=== PATIENT | female | born 1970 | race African-American/Black ===

== ENCOUNTER → 2024-09-14 09:59 | Outpatient (REF) | payer OTHER, SELFPAY ==
[2024-09-14 11:03] LABS: % Basophils 0.1 % (0-2); % Eosinophils 1.1 % (0-6); % Immature Granulocytes 0.2 % (0-0.5); % Monocytes 7.5 % (1.7-9.3); % Neutrophils 65.1 % (42.2-75.2); Absolute Eosinophils 0.1 10^3/uL (0-0.7); Absolute Lymphocytes 2.1 10^3/uL (1.2-3.4); Absolute Monocytes 0.6 10^3/uL (0.1-0.6); Absolute Neutrophils 5.3 10^3/uL (1.4-6.5); Hematocrit 40.4 % (37.0-47.0); Hemoglobin 13.5 g/dL (12.0-16.0); Mean Corp Hgb Conc. 33.4 g/dL (33.0-37.0); Mean Corpuscular Hgb 30.9 pg (27.0-31.0); Mean Corpuscular Volume 92.4 fL (81.0-99.0); Mean Platelet Volume 10.1 fL (7.4-10.4); Nucleated Red Blood Cells % 0 %; Platelet Count 288 10^3/uL (130-400); Red Blood Cell Count 4.37 10^6/uL (4.20-5.40); Red Cell Dist. Width 13.2 % (11.5-14.5); White Blood Cell Count 8.1 10^3/uL (4.8-10.8)
[2024-09-14 11:51] LABS: ALT (SGPT) 24 U/L (0-35); AST (SGOT) 25 U/L (14-36); Albumin 4.2 g/dl (3.5-5.0); Alkaline Phosphatase 98 U/L (38-126); Blood Urea Nitrogen 18 mg/dl (7-17); Calcium 9.6 mg/dl (8.4-10.2); Carbon Dioxide 29 mmol/L (22-30); Chloride 102 mmol/L (98-107); Glucose 83 mg/dl (70-99); HDL Cholesterol 64 mg/dl; LDL Cholesterol, Calculated 109 mg/dl; Potassium 4.3 mmol/L (3.5-5.1); Sodium 141 mmol/L (135-145); Total Bilirubin 0.5 mg/dl (0.2-1.3); Total Cholesterol 187 mg/dl (50-199); Total Protein 7.4 g/dl (6.3-8.2); Triglyceride 74 mg/dl (10-149); Very Low Density Lipoprotein 14 mg/dl (0-30); eGFR > 60.00
== END ==
LOC: REG 09:59
PROVIDERS: ATTENDING PHYSICIAN Physician Assistant
DX: M48.02 Spinal stenosis, cervical region (principal); Z68.37 Body mass index [BMI] 37.0-37.9, adult; F51.01 Primary insomnia; F33.1 Major depressive disorder, recurrent, moderate
CPT/HCPCS: 36415; 80053; 80061; 85025

== ENCOUNTER → 2025-02-11 09:49 | Outpatient (REF) | payer OTHER, MEDICARE, SELFPAY ==
[2025-02-11 10:25] LABS: % Basophils 0.1 % (0-2); % Eosinophils 1.1 % (0-6); % Immature Granulocytes 0.5 % (0-0.5); % Lymphocytes 24.4 % (20.5-51.1); % Monocytes 6.9 % (1.7-9.3); Absolute Eosinophils 0.1 10^3/uL (0-0.7); Absolute Lymphocytes 1.8 10^3/uL (1.2-3.4); Absolute Monocytes 0.5 10^3/uL (0.1-0.6); Hematocrit 40.2 % (37.0-47.0); Hemoglobin 13.1 g/dL (12.0-16.0); Mean Corp Hgb Conc. 32.6 g/dL (33.0-37.0); Mean Corpuscular Hgb 30.5 pg (27.0-31.0); Mean Corpuscular Volume 93.7 fL (81.0-99.0); Mean Platelet Volume 9.9 fL (7.4-10.4); Nucleated Red Blood Cells % 0 %; Platelet Count 269 10^3/uL (130-400); Red Blood Cell Count 4.29 10^6/uL (4.20-5.40); Red Cell Dist. Width 13.6 % (11.5-14.5); White Blood Cell Count 7.5 10^3/uL (4.8-10.8)
[2025-02-11 14:05] LABS: ALT (SGPT) 39 U/L (0-35); AST (SGOT) 31 U/L (14-36); Albumin 4.3 g/dl (3.5-5.0); Alkaline Phosphatase 93 U/L (38-126); Blood Urea Nitrogen 21 mg/dl (7-17); Calcium 9.4 mg/dl (8.4-10.2); Carbon Dioxide 26 mmol/L (22-30); Chloride 105 mmol/L (98-107); Glucose 91 mg/dl (70-99); HDL Cholesterol 57 mg/dl; LDL Cholesterol, Calculated 91 mg/dl; Potassium 4.7 mmol/L (3.5-5.1); Sodium 142 mmol/L (135-145); Total Bilirubin 0.6 mg/dl (0.2-1.3); Total Cholesterol 164 mg/dl (50-199); Total Protein 7.6 g/dl (6.3-8.2); Triglyceride 80 mg/dl (10-149); Very Low Density Lipoprotein 16 mg/dl (0-30); eGFR > 60.00
== END ==
LOC: REG 09:49
PROVIDERS: ATTENDING PHYSICIAN Physician Assistant
DX: Z00.00 Encounter for general adult medical examination without abnormal findings (principal); E66.09 Other obesity due to excess calories; H91.93 Unspecified hearing loss, bilateral; M48.02 Spinal stenosis, cervical region; F33.1 Major depressive disorder, recurrent, moderate; F51.01 Primary insomnia; Z68.37 Body mass index [BMI] 37.0-37.9, adult; F33.0 Major depressive disorder, recurrent, mild
CPT/HCPCS: 36415; 80053; 80061; 85025

== ENCOUNTER 2025-05-25 08:40 | Emergency (ER) | payer MEDICARE, OTHER, SELFPAY ==
[2025-05-25 08:48] VITALS: BP 146/78
--- NOTE | 2025-05-25 09:03 | ED.GENMED ---
History of Present Illness
General
Chief Complaint: Crisis Evaluation
Source: patient
Exam Limitations: none
Time Seen by Provider: 05/25/25 09:03
Nursing documentation reviewed up to this point in time: agreed with
History of Present Illness
History of Present Illness:
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 Patient
expresses that she wants to ' live her own life' and her mother caused her to be upset. Patient expresses that she is $400 short of paying her rent this month, which is causing her to feel stressed out. Patient adamantly denies suicidal and
homicidal thoughts. She reports she is just upset due to financial issues. Patient reports that she used to work at [employer] 5 days a week but because of chronic pain in her hip and her low back, she had to cut back her hours to 3 days a week.
She reports this is still too much for her to handle. Patient denies any drugs, alcohol and cigarettes. She reports she lives alone. Patient is extremely difficult for me to understand due to her being deaf and having muffled speech. I tried to
call the patient's family, however, she tells me she does not have their phone number. She then gave me her own cell phone number to call and when I called it, there was no one that answered. Patient is not interested in getting any help for
anxiety or depression, as she feels that this is not a primary issue at this time.
Past History
Past History
ED Past Medical History: Other (Hearing impaired)
ED Past Surgical History:
Social History
Tobacco: Non-smoker
Alcohol: None
Drug: None
Personal: Single
Living: alone
Employment: Employed
Family History
Family History: Other
Review of Systems
Review of Systems
Allergies reviewed?: Yes
All Other Systems: ROS reviewed and negative except as documented in HPI and ROS
Constitutional: Reports no symptoms
EENT: Reports no symptoms
Respiratory: Reports no symptoms
Cardiac: Reports no symptoms
ABD/GI: Reports no symptoms
: Reports no symptoms
Musculoskeletal: Reports back pain (Chronic low back pain)
Skin: Reports no symptoms
Neurological: Reports no symptoms
Endocrine: Reports no symptoms
Hematologic/Lymphatic: Reports no symptoms
Psychiatric: Reports anxiety (Due to financial issues)
Phy Exam
Physical Exam
Physical Exam:
Physical Exam
General: Patient is tearful but appears well-nourished and conversational
Neck: supple.
Heart: s1/s2 regular rate and rhythm,
Lungs: no acute respiratory distress. clear bilaterally
Abdomen: normal bowel sounds. not tender. no CVAT
Neuro: alert and oriented. no focal neurological deficits
Skin: no rash
Psychiatric: well kept. interactive and cooperative
Extremities: no edema. no calf tenderness. negative homans. good distal pulses
Course
Orders/Labs/Results
Orders:
Orders
05/25/25 09:20
Case Management Consult ONCE
Case Management Consult: Other
Requested By:: PT/FAMILY
Comment: financial help
Vital Signs
Initial and Last Documented VS:
Initial Vital Signs
Temp Pulse Resp BP Pulse Ox
98.5 F 84 18 146/78 98
05/25/25 08:48 05/25/25 08:48 05/25/25 08:48 05/25/25 08:48 05/25/25 08:48
Last Documented Vital Signs
Temp Pulse Resp BP Pulse Ox
98.5 F 84 18 146/78 98
05/25/25 08:48 05/25/25 08:48 05/25/25 08:48 05/25/25 08:48 05/25/25 09:42
MDM/Problems Addressed
Differential Diagnosis Includes:
Social economic problems, acute on chronic depression, acute on chronic anxiety
MDM/Problems Addressed:
Patient reports acute anxiety due to financial issues
Acute Exacerbation and/or Progression of Chronic Illness:
Patient is acutely hypertensive, likely due to anxiety of being brought in by police and dealing with financial issues
Acute Exacerbation and/or Progression of Chronic Illness: HTN
*Pulse Oximetry
SaO2: 98
Oxygen Mode of Delivery: Room air
Patient hypoxic: no
Comment: 98% on room air
*Critical Care Note
Total Time (30-74mins, 75-104mins- exclusive of procedures): Not Applicable
Patient Management
Social determinants of health affecting care: Strong social support
Discussion with other providers: Other (Case management, crisis)
Update Note
Update Note:
Patient given information for financial support by case management, who formally evaluated patient at the bedside. Patient also evaluated by crisis. Patient has no acute mental health issue to warrant inpatient psychiatric management, as she is
here for financial issues and does not express suicidal or homicidal thoughts.
ED Attending Note
-
Portions of this chart may have been created with voice recognition software.� Occasional wrong word or��sound alike� substitutions may have occurred due to the inherent limitations of voice recognition software.
Discharge Plan
Departure
Patient Disposition: Home (Routine Discharge)
Date of Disposition: 05/25/25
Time of Disposition: 09:51
Patient with high blood pressure during this ER visit?: Yes
Condition: Good
Covid-19: Not Applicable
Discharge Problem:
Financial difficulties
Instructions: Anxiety in adults - ED discharge instructions, BLOOD PRESSURE
Interventions
Interventions:
*Risk Screen - Suicide Last Done: 05/25/25 08:44
*General Assessment Last Done: 05/25/25 09:56
*Neglect/Abuse Screening Last Done: 05/25/25 08:44
*ED- Fall Risk Assessment Last Done: 05/25/25 09:56
*ED COVID-19 Vaccine History Last Done: 05/25/25 09:56
ED-Psychological Assessment Last Done: 05/25/25 09:57
Discharge Date and Time
Print Language: SINHALA
[2025-05-25 09:54] VITALS: BMI 35.8
[2025-05-25 09:59] VITALS: BP 121/81
--- NOTE | 2025-05-25 10:00 | CM ---
CM following re: discharge planning.
CM consulted to assist pt with financial resources especially paying her rent and to afford food.
Reviewed pt's chart, met with pt and pt was interviewed with Crisis case picker.
Pt is a 54 year old female, brought to ER by EMS after having emotional outburst with her mother regarding managing her living situation. Pt reports she was born and grew up in [place] [facility], emig[place] with family [place] [facility] at the age of 11. Pt
reports she lives with 9 year old daughter in an apartment, has 3 children and 2 of them are adult and they have an own place to live. Pt reports her mother is taking care of her daughter while pt is here. 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, her monthly 2 bedrooms apartment rent is $1760.00 per month and she is behind $400.00 payment and pt stated she is struggling to keep her apartment. Pt stated she is looking for to find an apartment with affordable gupta. Pt reports she
receives food stamps and pt has been advised to utilize [email or web address] and the [facility] is located next to pt's apartment. [employer] brochure given to the pt and pt was advised to call [facility] case picker to ask for affordable housing
living resources.
Per Crisis case picker, pt is known to [facility] and pt has blended egg caser from [facility] and pt was advised to utilize [facility] resources for community based living.
Pt stated she has no way to get home, she does not have her phone but she has keys from her apartment.
[facility] transport will be scheduled shortly to get the pt home.
D/C plan: return back home with utilizing community based resources: [employer], [email or web address], [facility] outpatient psychiatric/psychological services and family support. Lyft transportation scheduled.
--- NOTE | 2025-05-25 10:57 | EDRN ---
Due to internal e-mail changes had difficulty contacting for a [facility] initially w/ B. César SALAZAR texted to find out how to contact L[facility] and pt just left via LYFT.
== END 2025-05-25 10:55 | disposition home or self-care (01) ==
LOC: EMR 08:40
PROVIDERS: EMERGENCY PHYSICIAN Emergency Medicine
DX: F41.9 Anxiety disorder, unspecified (principal); Z59.86 Financial insecurity; R03.0 Elevated blood-pressure reading, without diagnosis of hypertension; H91.90 Unspecified hearing loss, unspecified ear; G89.29 Other chronic pain; M54.50 Low back pain, unspecified
CPT/HCPCS: 99283